=== PATIENT | female | born 1980 | race Caucasian/White ===

== ENCOUNTER → 2019-08-19 20:49 | Outpatient (CLI) | payer BC, SELFPAY ==
[2019-08-19 19:59] VITALS: BMI 22.6
[2019-08-19 22:42] LABS: Chlamydia Trachomatis by PCR Negative (Negative); Neisserai gonorrhoeae by PCR Negative (Negative); Probe Check PASS; Sample Adequacy Control PASS; Specimen Processing Control PASS
== END ==
PROVIDERS: PCP Nurse Practitioner; Referring Provider Nurse Practitioner; Visit Provider Nurse Practitioner
DX: N89.8 Other specified noninflammatory disorders of vagina (principal)
CPT/HCPCS: 87491; 87591

== ENCOUNTER → 2023-10-30 | Outpatient (CLI) | payer OTHER, SELFPAY ==
[2023-10-30 23:01] LABS: Absolute Neutrophil Count 3.1 X10^3/uL (2.0-7.7); Basophil# 0.04 X10^3/uL; Basophil% 0.7 % (0-1); Eosinophil# 0.03 X10^3/uL; Eosinophils% 0.5 % (0-5); Hemoglobin 12.8 g/dL (12.0-15.0); Lymphocyte % 37.8 % (19-41); Mean Corp Hgb Conc 32.8 g/dL (32-36); Mean Corpuscular Volume 94.4 fL (81-99); Mean Platelet Vol. 10.7 fl (6.2-12.0); Monocyte# 0.57 X10^3/uL; Monocyte% 9.4 % (0-10); NRBC Flagged by Analyzer 0 % (0-5); Neutrophil # 3.13 X10^3/uL (2.7-7.7); Neutrophil % 51.3 % (47-70); Platelet Count 249 K/mm3 (150-450); RBC Distribution Width CV 13.2 % (11.6-14.6); RBC Distribution Width SD 45.4 fl (35.1-43.9); Red Blood Count 4.13 M/mm3 (4.2-5.4); White Blood Count 6.1 K/mm3 (4.4-11.0)
[2023-10-30 23:18] LABS: ALB/GLOB Ratio 1.1 RATIO (0.9-2.4); AST(SGOT) 20 U/L (15-37); Alanine Aminotransfer ALT/SGPT 18 U/L (13-56); Albumin, Serum 4.1 g/dL (3.2-5.0); Alkaline Phosphatase 63 U/L (45-117); Anion Gap 5 (5-15); BUN 10 mg/dL (7-18); Calcium,Total 8.9 mg/dL (8.5-10.1); Chloride 110 mmol/L (98-107); Creatinine, Serum 0.77 mg/dL (0.55-1.02); EST Glomerular Filtration Rate 87 mL/min (>60); Est Glom Filt Rate - Afr Amer 105 mL/min (>60); Globulin 3.8 g/dL (2.2-4.2); Glucose 99 mg/dL (74-106); Lipase 56 U/L (13-75); Potassium 3.7 mmol/L (3.5-5.1); Protein, Total 7.9 g/dL (6.4-8.2); Sodium Level 141 mmol/L (136-145)
== END | disposition home or self-care (01) ==
PROVIDERS: PCP Nurse Practitioner; Referring Provider Nurse Practitioner; Visit Provider Nurse Practitioner
DX: R10.30 Lower abdominal pain, unspecified (principal); R11.0 Nausea
CPT/HCPCS: 80053; 83690; 85025

== ENCOUNTER → 2025-01-06 | Outpatient (CLI) | payer OTHER, SELFPAY ==
--- OUTSIDE RECORDS SUMMARY | 2025-01-06 22:03 | XMS RPT_ITS | CCD ---
Author Organization [facility] CliniSymt Care Team Providers Care Tank Maker Wood Name Role Phone QUYNH MCBRIDE Unavailable Unavai labEMERALD Hawkins Unavailable Unavailable NO PRIMARY CARE, Unavailable Unavailable XIMENA (PPG), SIMRANJOT Unavailable Unavaila ble XIMENA (PPG), SIMRANJOT Unavailable Unavaila ble NO REFERRING Unavailable Unavailable XIMENA, SIMRANJOT Unavailable Unavailable XIMENA, SIMRANJOT Unavailable Unavailable CASTILLO, RENA Primary Care Unavailable BELLSALMA, EMERALD Attending Unavailable CASTILLO, RENA Primary Care Unavailable Pending, Provider Primary Care Unavailable Ms. Kelly Reyna Referring Unavailable Ms. Kelly Reyna Attending Unavailable Castillo CARBON LAMP CLEANER.FLEET OPERATIONS MANAGER, Rena L Primary Care Provide r Panda CD TECHNICIAN, Rena Referring Unavailable Panda CD TECHNICIAN, Rena Attending Unavailable Castillo CD TECHNICIAN, Rena Primary Care Unavailable Castillo CARBON LAMP CLEANER.FLEET OPERATIONS MANAGER, Rena L Primary Care Provide r RUSTY OGDEN Attending Unavailable SELF Referring Unavailable CASTILLO, RENA L Primary Care Unavailable Medications Current Medications Medication Drug Class(es) Dates Sig (Normalized) Sig (Original) ALPRAZolam 0.5 mg oral tablet (1 source) Benzodiazepine Start: 07-11-2024 ALPRAZolam (XANAX) 0.5 mg tablet Take 0.5 mg by mouth. 07/11/2024 Active cetirizine hydrochloride 10 mg oral capsule (2 sources) Histamine-1 Receptor Antagonist Cetirizine (ZYRTEC) 10 mg cap Take by mouth. Active Comment on above: Take by mouth. doxycycline monohydrate 100 mg oral capsule (2 sources) Tetracycline-class Drug Start: 04-09-2023 take 1 capsule by mouth once daily doxycycline monohydrate (MONODOX) 100 mg capsule take 1 capsule by mouth once daily. 30 capsule 1 04/09/2023 Active Start: 02-21-2023 take 1 capsule by [facility] once daily doxycycline monohydrate (MONODOX) 100 mg capsule Take 1 capsule by mouth once daily. 30 capsule 1 02/21/2023 Active Comment on above: Take 1 capsule by [facility] once daily. erythromycin 0.005 mg/mg ophthalmic ointment (1 source) Macrolide, Macrolide Antimicrobial Start: 07-14-2024 erythromycin (ROMYCIN) 5 mg/gram (0.5 %) ophthalmic ointment Use 1 application in the right eye three times a day. 3.5 g 3 07/14/2024 Active MULTIVIT-MINERALS/FERROU S FUM (MULTI VITAMIN ORAL) (2 sources) MULTIVIT-MINERAL S/VLADIMIR US FUM (MULTI VITAMIN ORAL) Take by mouth once daily. Active MULTIVIT-MINERAL S/FERROUS FUM (MULTI VITAMIN ORAL) Take by mouth once daily. 0 Active Comment on above: Take by mouth once d aily. sertraline 50 mg oral tablet (2 sources) Serotonin Reuptake Inhibitor Start: 10-09-2017 take 1 tablet by mouth once daily sertraline (ZOLOFT) 50 mg tablet Take 1 tablet by mouth once daily. 30 tablet 2 10/09/2017 Active Comment on above: Take 1 tablet by [facility] once daily. Completed/Discontinued Medications Medication Drug Class(es) Dates Sig (Normalized) Sig (Original) benoxinate hydrochloride 4 mg/ml / fluorescein sodium 3 mg/ml ophthalmic solution (3 sources) Diagnostic Dye Start: 07-14-2024 End: 07-15-2024 fluorescein-benoxi julianne 0.3-0.4 % 1 drop (FLURESS) Start: 07-14-2024 End: 07-15-2024 1 drop, BOTH EYES, DIRECT ED, Starting on Sat07/14/24 at 1300, Until Sat07/15/24 at 0059, Administer for applanation tonometry. In the event of a Fluress shortage, administer 1 drop of [place]-Fluor into both eyes as directed for applanation tonometry., [facility]HT [facility]INIC MED ORDERS Start: 02-21-2023 End: 02-22-2023 fluorescein-benoxinate 0.3-0 .4 % 1 Drop (FLURESS) phenylephrine hydrochloride 25 mg/ml ophthalmic solution (2 sources) alpha-1 Adrenergic Agonist Start: 07-14-2024 End: 07-15-2024 PHENYLephrine 2.5 % 1 drop (AK-DILATE, SANDRA-SYNEPHRINE) Start: 07-14-2024 End: 07-15-2024 1 drop, BOTH EYES, DIRECT ED, Starting on Sat07/14/24 at 1300, Until Sat07/15/24 at 0059, Administer for dilation PROTECT FROM LIGHT, [facility]HT CLINIC MED ORDERS proparacaine hydrochloride 5 mg/ml ophthalmic solution (1 source) Local Anesthetic Start: 07-14-2024 End: 07-15-2024 proparacaine 0.5 % 1 drop (ALCAINE) tropicamide 10 mg/ml ophthalmic solution (2 sources) Anticholinergic Start: 07-14-2024 End: 07-15-2024 tropicamide 1 % 1 drop (MYDRIACYL) Start: 07-14-2024 End: 07-15-2024 1 drop, BOTH EYES, DIRECT ED, Starting on Sat07/14/24 at 1300, Until Sat07/15/24 at 0059, Administer for dilation, [facility]HT CLINIC MED ORDERS Problems Active Problems Problem Classification Problem Date Documented Da te Episodic/Chronic Abdominal pain (1 source) Lower abdominal pain, unspecified; Translations: [Lower abdominal pain, unspecified] Onset: 12-02-2023 Episodic Anxiety disorders (2 sources) Anxiety; Translations: [Anxiety disorder, unspecified] Onset: 10-15-2012 10-15-2012 Chronic Blindness and vision defects (3 sources) Disorder of refraction; Translations: [Unspecified disorder of refraction] Onset: 07-14-2024 02-21-2023 Episodic Inflammation; infection of eye (except that caused by tuberculosis or sexually transmitteddisease) (6 sources) Blepharitis; Translations: [Squamous blepharitis right eye, upper and lower eyelids] Onset: 07-14-2024 02-21-2023 Episodic Mood disorders (2 sources) Depressive disorder; Translations: [Depression] Onset: 10-15-2012 10-15-2012 Chronic Mood disorders (3 sources) Major depressive disorder, single episode, unspecified; Translations: [ANNALEE DEPRESS D/O SINGLE E] Onset: 11-14-2016 Other eye disorders (1 source) Chalazion of left upper eyelid; Translations: [Chalazion left upper eyelid] 02-21-2023 Episodic Other eye disorders (2 sources) Tear film insufficiency; Translations: [Dry eye syndrome of bilateral lacrimal glands] 02-21-2023 Episodic Other eye disorders (1 source) Dry eye syndrome of bilateral lacrimal glands; Translations: [Dry eye syndrome of both eyes] Onset: 07-14-2024 Episodic Other female genital disorders (2 sources) Postcoital bleeding; Translations: [Postcoital and contact bleeding] Onset: 12-27-2015 12-27-2015 Chronic Past or Other Problems Problem Classification Problem Date Documented Da te Episodic/Chronic Other and delivery including normal (1 source) Term ; Translations: [Encounter for supervision of normal , unspecified, unspecified trimester] Onset: 03-11-2016 Resolved: 03-12-2016 03-12-2016 Episodic Results Test Name Value Interpretation Reference Range Facility CBC W/Diff, Automatedon 08-0 Absolute Lymph 2.30 X10 3/uL Normal 0.83-4.51 [facility] Comment on above: Performed By: #### L 500.4050, L100.0100, L501.2450 #### [facility] [address] [place], [address] Absolute Neut 3.1 X10 3/uL Normal 2.0-7.7 [facility] Comment on above: Performed By: #### L 500.4050, L100.0100, L501.2450 #### [facility] [address] [place], [address] Basophils/100 WBC (Bld) 0.7 % Normal 0-1 [facility] Comment on above: Performed By: #### L 500.4050, L100.0100, L501.2450 #### [facility] [address] [place], [address] Eosinophils/100 WBC (Bld) 0.5 % Normal 0-5 [facility] Comment on above: Performed By: #### L 500.4050, L100.0100, L501.2450 #### [facility] [address] [place], [address] Erythrocyte distribution width (RBC) [Ratio] 13.2 % Normal 11.6-14.6 [facility] Comment on above: Performed By: #### L 500.4050, L100.0100, L501.2450 #### [facility] [address] [place], [address] Hematocrit (Bld) [Volume fraction] 39.0 % Normal 37-47 [facility] Comment on above: Performed By: #### L 500.4050, L100.0100, L501.2450 #### [facility] [address] [place], [address] Hemoglobin (Bld) [Mass/Vol] 12.8 g/dL Normal 12.0-15.0 [facility] Comment on above: Performed By: #### L 500.4050, L100.0100, L501.2450 #### [facility] [address] [place], [address] IG% 0.300 Normal 0.0-0.9 [facility] Comment on above: Result Comment: IG% - Immature Granulocytes (promyelocytes, myelocytes and metamyelocytes) > 1% indicates that a LEFT SHIFT is Present. Performed By: #### L 500.4050, L100.0100, L501.2450 #### [facility] [address] [place], [address] Lymphocytes/100 WBC (Bld) 37.8 % Normal 19-41 [facility] Comment on above: Performed By: #### L 500.4050, L100.0100, L501.2450 #### [facility] [address] [place], [address] MCH (RBC) [Entitic mass] 31.0 pg Normal 27.0-32.0 [facility] Comment on above: Performed By: #### L 500.4050, L100.0100, L501.2450 #### [facility] [address] [place], [address] MCHC (RBC) [Mass/Vol] 32.8 g/dL Normal 32-36 [facility] Comment on above: Performed By: #### L 500.4050, L100.0100, L501.2450 #### [facility] [address] [place], [address] MCV (RBC) [Entitic vol] 94.4 fL Normal 81-99 [facility] Comment on above: Performed By: #### L 500.4050, L100.0100, L501.2450 #### [facility] [address] [place], [address] Monocytes/100 WBC (Bld) 9.4 % Normal 0-10 [facility] Comment on above: Performed By: #### L 500.4050, L100.0100, L501.2450 #### [facility] [address] [place], [address] Neutrophils/100 WBC (Bld) 51.3 % Normal 47-70 [facility] Comment on above: Performed By: #### L 500.4050, L100.0100, L501.2450 #### [facility] [address] [place], [address] Nucleated RBC (Bld) [#/Vol] 0 10*3/uL Normal 0-5 [facility] Comment on above: Performed By: #### L 500.4050, L100.0100, L501.2450 #### [facility] [address] [place], [address] Platelet mean volume (Bld) [Entitic vol] 10.7 fL Normal 6.2-12.0 [facility] Comment on above: Performed By: #### L 500.4050, L100.0100, L501.2450 #### [facility] [address] [place], [address] Platelets (Bld) [#/Vol] 249 10*3/uL Normal 150-450 [facility] Comment on above: Performed By: #### L 500.4050, L100.0100, L501.2450 #### [facility] [address] [place], [address] RBC (Bld) [#/Vol] 4.13 10*6/uL Low 4.2-5.4 [facility] Comment on above: Performed By: #### L 500.4050, L100.0100, L501.2450 #### [facility] [address] [place], [address] RDW SD 45.4 fl High 35.1-43.9 [facility] Comment on above: Performed By: #### L 500.4050, L100.0100, L501.2450 #### [facility] [address] [place], [address] WBC (Bld) [#/Vol] 6.1 10*3/uL Normal 4.4-11.0 [facility] Comment on above: Performed By: #### L 500.4050, L100.0100, L501.2450 #### [facility] [address] [place], [address] Comprehensive Metabolic Prof [facility] 10-30-2023 Albumin [Mass/Vol] 4.1 g/dL Normal 3.2-5.0 [facility] Comment on above: Performed By: #### L 500.4050, L100.0100, L501.2450 #### [facility] [address] [place], [address] Albumin/Globulin [Mass ratio] 1.1 {ratio} Normal 0.9-2.4 [facility] Comment on above: Performed By: #### L 500.4050, L100.0100, L501.2450 #### [facility] [address] [place], [address] ALK P 63 U/L Normal 45-117 [facility] Comment on above: Performed By: #### L 500.4050, L100.0100, L501.2450 #### [facility] [address] [place], [address] ALT [Catalytic activity/Vol] 18 U/L Normal 13-56 [facility] Comment on above: Performed By: #### L 500.4050, L100.0100, L501.2450 #### [facility] [address] [place], [address] AST [Catalytic activity/Vol] 20 U/L Normal 15-37 [facility] Comment on above: Performed By: #### L 500.4050, L100.0100, L501.2450 #### [facility] [address] [place], [address] Bilirubin [Mass/Vol] 0.30 mg/dL Normal 0.20-1.00 [facility] Comment on above: Result Comment: For patients on eltrombopag therapy, use of Dimension [place] TBIL is not recommended. Performed By: #### L 500.4050, L100.0100, L501.2450 #### [facility] [address] [place], [address] BUN/CRE 13.0 RATIO Normal 10-20 [facility] Comment on above: Performed By: #### L 500.4050, L100.0100, L501.2450 #### [facility] [address] [place], [address] CA,Total 8.9 mg/dL Normal 8.5-10.1 [facility] Comment on above: Performed By: #### L 500.4050, L100.0100, L501.2450 #### [facility] [address] [place], [address] Chloride [Moles/Vol] 110 mmol/L High 98-107 [facility] Comment on above: Performed By: #### L 500.4050, L100.0100, L501.2450 #### [facility] [address] [place], [address] CO2 [Moles/Vol] 26.0 mmol/L Normal 21.0-32.0 [facility] Comment on above: Performed By: #### L 500.4050, L100.0100, L501.2450 #### [facility] [address] [place], [address] Creatinine [Mass/Vol] 0.77 mg/dL Normal 0.55-1.02 [facility] Comment on above: Result Comment: The validity of the calculated GFR GFRAA in patients over 70 years has not been determined. Clinical correlation is essential. Performed By: #### L 500.4050, L100.0100, L501.2450 #### [facility] [address] [place], [address] EST GFR - AA 105 mL/min Normal >60 [facility] Comment on above: Result Comment: Afri can Tanzanian GFR Calc Performed By: #### L 500.4050, L100.0100, L501.2450 #### [facility] [address] [place], [address] GAP 5 Normal 5-15 [facility] Comment on above: Performed By: #### L 500.4050, L100.0100, L501.2450 #### [facility] [address] [place], [address] GFR/1.73 sq M.predicted among non-blacks MDRD (S/P/Bld) [Vol rate/Area] 87 mL/min/{1.73_m2} Normal >60 [facility] Comment on above: Result Comment: Non- GFR Calc Performed By: #### L 500.4050, L100.0100, L501.2450 #### [facility] [address] [place], [address] Globulin (S) [Mass/Vol] 3.8 g/dL Normal 2.2-4.2 [facility] Comment on above: Performed By: #### L 500.4050, L100.0100, L501.2450 #### [facility] [address] [place], [address] Glucose [Mass/Vol] 99 mg/dL Normal 74-106 [facility] Comment on above: Performed By: #### L 500.4050, L100.0100, L501.2450 #### [facility] [address] [place], [address] Potassium [Moles/Vol] 3.7 mmol/L Normal 3.5-5.1 [facility] Comment on above: Performed By: #### L 500.4050, L100.0100, L501.2450 #### [facility] [address] [place], [address] Sodium [Moles/Vol] 141 mmol/L Normal 136-145 [facility] Comment on above: Performed By: #### L 500.4050, L100.0100, L501.2450 #### [facility] [address] [place], [address] T PROT 7.9 g/dL Normal 6.4-8.2 [facility] Comment on above: Performed By: #### L 500.4050, L100.0100, L501.2450 #### [facility] [address] [place], [address] Urea nitrogen [Mass/Vol] 10 mg/dL Normal 7-18 [facility] Comment on above: Performed By: #### L 500.4050, L100.0100, L501.2450 #### [facility] [address] [place], [address] Lipaseon 10-30-2023 Lipase [Catalytic activity/Vol] 56 U/L Normal 13-75 [facility] Comment on above: Result Comment: Zackary hernandez note: LIPASE revised reference range effective 22. New Lipase methodology. Expected to produce lower values than the previous assay method. NEW Reference Range: 13 - 75 U/L Performed By: #### L 500.4050, L100.0100, L501.2450 #### [facility] [address] [place], [place], [address] Office Visit (Urgent Care)on 03-12-2022 Follow-up visit Diagnoses/Problems Assessed Acute streptococcal pharyngitis (034.0) (J02.0) Orders Acute streptococcal pharyngitis Start: Amoxicillin 500 MG Oral Tablet; TAKE 1 TABLET EVERY 12 HOURS DAILY Rx By: Kelly Reyna; Dispense: 10 Days ; #:20 Tablet; Refill: 0;For: Acute streptococcal pharyngitis; GAIL = N; Sent To: [facility] SocHx: Former smoker Tobacco Use Screening; Status:Complete; Done: 12Mar2022 Perform:Not Applicable;Ordered; For:SocHx: Former smoker; Ordered By:Paty Park; Sore throat IO Rapid Strep; Status:Complete; Done: [id number] 01:37PM Performed:In Office; Due:10Jun2022;Ordered; For:Sore throat; Ordered By:Kelly Reyna; Patient Discussion/Summary Rapid in office strep test: Positive. Antibiotics sent to the pharmacy. Administer as directed. Do not stop early even if symptoms improve. Push fluids to stay well-hydrated May have lwtc-dxd-yaavwiv Tylenol and/or ibuprofen as needed for pain/fever Change toothbrush 24 hours after being on antibiotic Follow-up with surveyor helper rod Go directly to the emergency room for worsening symptoms such as trouble breathing/swallowing or any facial/neck swelling. Chief Complaint Chief Complaints Sore Throat History of Present Illness 41-year-old female presents to the urgent care with chief complaint of sore throat that started 5 days ago. States that throat pain has been constant and worsening. Has increased pain with swallowing, rating it 7 out of 10. Also endorses sweats, nausea, nasal congestion and runny nose. Has been alternating Advil, Tylenol and drinking hot tea with minimal relief in symptoms. Denies fever, body aches, chills, cough, vomiting or diarrhea, headaches, chest pain, trouble breathing or swallowing. Review of Systems All other systems have been reviewed and are negative for complaint. Active Problems Problems Sore throat (462) (J02.9) Social History Problems Former smoker (V15.82) (Z87.891) Allergies Medication No Known Drug Allergies Recorded By: Paty Park; 03/12/2022 1:24:24 PM Current Meds Medication NameInstruction No Reported Medications Vitals Vital Signs Recorded: [id number] 01:30PM Zmehhvbixie22.2 F Heart Rate73 Safhxpmbtrp19 Ptvhqdft059 Vqmosfmcv26 Height5 ft 6 in Vkeacf711 lb BMI Najlcjpxvb95.4 kg/m2 BSA Calculated1.74 Tobacco Useb) No PHQ-2 #1. Over the last 2 weeks have you felt down, depressed or hopeless? (If yes, answer PHQ-9 below)No PHQ-2 #2. Over the last 2 weeks have you felt little interest or pleasure in doing things? (If yes, answer PHQ-9 below)No Falls Screening (Age 18+)a) No falls within the last year O2 Ysfmupblma52 Pain Scale7 Physical Exam GENERAL: Well-appearing, nontoxic, NAD. VS and triage notes reviewed. Sitting comfortably in exam room. SKIN: Visualized skin is warm and dry. HEENT Head: Atraumatic Eyes: Sclera and conjunctivae normal; no redness or drainage. PERRL. EOMI Ears: Hearing grossly intact. Bilateral EAC patent, TMs rose portillo, non bulging. Nose: Nares grossly patent without discharge Face: symmetric Oropharynx: MMM. Generalized tonsillar erythema with exudate noted. No petechiae or gross swelling noted. Uvula midline. Neck: Supple with small, soft, mobile anterior cervical lymphadenopathy. Trachea midline. CHEST: Normal respiratory effort. Speaks in complete sentences. Equal chest rise. No retractions or tripoding. Lungs clear to auscultation throughout posterior lung serrano. No wheezes, crackles, or rhonchi. HEART: Regular rate. S1 AND S2 noted. No murmurs, rubs, clicks, gallops auscultated. PSYCH: Normal mood and affect. NEURO: Alert AND oriented. Moves all extremities. Speech is clear. Answers questions appropriately. Gait normal. Results/Data IO Rapid [id number] 01:37PMKelly Reyna Test NameResultFlagReference IO Rapid StrepPositiveA Signatures Electronically signed by : HAI Cooper; Mar 12 2022 2:11PM EST (Author) [facility] Phone Msgon 06-23-2021 Phone Msg - From: Maribeth Purcell To: Gary KUMAR, Addie; Sent: 06/23/2021 14:11:15 EDT Subject: .CHEMICAL LIBRARIAN VAGINAL INFECTION (BV/YEAST) pt had sinus infection and was taking omicef and now has a yeast infection. Pt sts diflucan never works and usually prescribes something else that has an applicator? Asked her if it was terconazole topical vaginal cream which is in her med list and she thought that was it. Question Response Last Annual/CPE/Visit 04/15/2020 Next Annual/CPE/Visit 12/01/[address] Garner Contact May we contact you via patient portal? *If not seen in the last 12 months, STOP and make a problem appointment (first available)* Are you or nursing? no Is there vaginal discharge? (thick, watery, chunky, etc?) please describe starting to have white Is there vaginal odor? no Is there vaginal burning? no If yes, is burning with urination only? Does it burn even when not urinating? External burning? no Is there vaginal itching? (internal/external?) yes How long have you had these symptoms? started 06/18 Have you tried OTC meds? (Monistat, vagisil?) no they usually dont work Have you been on a recent antibiotic? yes omnifec Any history of BV, yeast, or lichen sclerosus yeast Patient Preferred Pharmacy? (please update on file) in chart is correct pharmacy Allergies? *Send message to SHERITA* On hold pending signature Order:terconazole topical (terconazole 0.8% vaginal cream) 1 maurizio Vaginal QHS Qty: 20 g Duration: 3 days Refills: 0 Substitutions Allowed Route To Pharmacy - [id number] Last time pt was seen 04/15/20 and a annual coming up in Nov and terconazole cream was call in last time she had a bv infection. I will proposed the terconazole cream but let me know if you think differently and that she needs to come in for an appt. From: Hillary Soto MA To: ANDREI FOX; Sent: 06/23/2021 14:22:15 EDT Subject: FW: .CHEMICAL LIBRARIAN VAGINAL INFECTION (BV/YEAST) From: ANDREI FOX Sent: 06/23/2021 16:46:37 EDT Subject: RE:FW: .CHEMICAL LIBRARIAN VAGINAL INFECTION (BV/YEAST) Approved Order:terconazole topical (terconazole 0.8% vaginal cream) 1 maurizio Vaginal QHS Qty: 20 g Duration: 3 days Refills: 0 Substitutions Allowed Route To Pharmacy - [id number] Signed by ANDREI FOX 06/23/2021 16:46:00 EDT terazole for yeast Normal [facility] Panelon 11-14-2016 Anion gap 11 mmol/L Normal 8-20 [facility] Comment on above: Performed By: #### L P8 ####[address] [address] BUN (urea nitrogen) 14 mg/dL Normal 7- [facility] Comment on above: Performed By: #### L P8 ####[address] [address] BUN/Creatinine Ratio 23 mg/mg High 10-20 [facility] Comment on above: Performed By: #### L P8 ####[facility] [place], [place] [address] Calcium 9.0 mg/dL Normal 8.5-10.1 [facility] Comment on above: Performed By: #### L P8 ####[facility] [place] [address] Chloride 102 mmol/L Normal 98-107 [facility] Comment on above: Performed By: #### L P8 ####[facility] [place] [address] CO2 27 mmol/L Normal 21-32 [facility] Comment on above: Performed By: #### L P8 ####[place] [address] Creatinine 0.62 mg/dL Normal 0.51-0.95 [facility] Comment on above: Performed By: #### L P8 ####[place] [address] Glucose mass conc 83 mg/dL Normal 70-99 [facility] Comment on above: Performed By: #### L P8 ####[place] [address] Potassium molar conc 3.7 mmol/L Normal 3.5-5.1 [facility] Comment on above: Performed By: #### L P8 ####[place] [address] Sodium 136 mmol/L Normal 136-145 [facility] Comment on above: Performed By: #### L P8 ####[place] [address] Hemogramon 11-14-2016 Erythrocyte distribution width Auto Ratio (RBC) 13.3 % Normal 11.5-15.9 [facility] Comment on above: Performed By: #### L CBC ####[place] [address] Erythrocytes (RBC) 3.73 mil/cmm Low 4.20-5.40 [facility] Comment on above: Performed By: #### L CBC ####[place] [address] Hematocrit (HCT) 35.8 % Low 37.0-47.0 [facility] Comment on above: Performed By: #### L CBC ####[place] [address] Hemoglobin mass conc (Bld) 11.9 g/dL Low 12.0-16.0 [facility] Comment on above: Performed By: #### L CBC ####[place] [address] MCH 31.9 pg High 27.0-31.0 [facility] Comment on above: Performed By: #### L CBC ####[place] [address] MCHC mass conc (RBC) 33.2 % Normal 32.0-36.0 [facility] Comment on above: Performed By: #### L CBC ####[place] [address] MCV 96.0 fL Normal 81.0-99.0 [facility] Comment on above: Performed By: #### L CBC ####[place] [address] Platelet mean volume (PMV) 10.2 fL Normal 7.1-10.5 [facility] Comment on above: Performed By: #### L CBC ####[place] [address] Platelets 204 thou/cmm Normal 150-400 [facility] Comment on above: Performed By: #### L CBC ####[place] [address] WBC (Leukocytes) 5.2 thou/cmm Normal 4.8-10.8 [facility] Comment on above: Performed By: #### L CBC ####[place] [address] Hepatic Panelon 11-14-2016 Albumin 4.0 g/dL Normal 3.4-5.0 [facility] Comment on above: Performed By: #### L HEPA ####[place] [address] Albumin/Globulin Ratio 1.2 {ratio} Normal 0.9-2.4 [facility] Comment on above: Performed By: #### L HEPA ####[facility] [place], [place] [address] Alkaline phosphatase (ALP) 75 U/L Normal 46-116 [facility] Comment on above: Performed By: #### L HEPA ####[facility] [place], [place] [address] ALT-SGPT Blood 18 U/L Normal 12-78 [facility] Comment on above: Performed By: #### L HEPA ####[address] [address] AST-SGOT Blood 20 U/L Normal 15-37 [facility] Comment on above: Performed By: #### L HEPA ####[address] [address] Bilirubin (direct) 0.11 mg/dL Normal 0.00-0.20 [facility] Comment on above: Performed By: #### L HEPA ####[address] [address] Bilirubin (indirect) 0.3 mg/dL Normal 0.0-0.7 [facility] Comment on above: Performed By: #### L HEPA ####[address] [address] Bilirubin Ql (U) 0.4 mg/dL Normal 0.2-1.0 [facility] Comment on above: Performed By: #### L HEPA ####[address] [address] Protein 7.4 g/dL Normal 6.4-8.2 [facility] Comment on above: Performed By: #### L HEPA ####[address] [address] MDRD eGFRon 11-14-2016 eGFR (non-black) mL/min/{1.73_m2} Normal >60mL/m in/1.7 3m2 [facility] Comment on above: Result Comment: If t he patient is , multiply the result by 1.210. Performed By: #### L GFR ####[address] [address] TSH reflex ([place])on 11-15-19 17 Thyroid stimulating hormone (TSH) 0.73 uIU/mL Normal 0.34-4.82 [facility] Comment on above: Result Comment: Free T4 reflexed if TSH is less than or greater than the reference range. Performed By: #### L TSHR ####[facility] [place], [place] [address] Encounters Encounter Date Encounter Type Care Provider Facility Start: 07-14-2024 End: 07-14-2024 Patient encounter procedure Rusty Ogden MD Work Phone: [facility] [place] Comment on above: Hordeolum externum o f right upper eyelid (Primary Dx); Squamous blepharitis of upper and lower eyelids of both eyes; Dry eye syndrome of both eyes; Refraction error Start: 07-14-2024 End: 07-14-2024 ambulatory RUSTY OGDEN Facility:[facility] Start: 10-30-2023 End: 10-30-2023 ambulatory Rena Castillo NP Facility:[facility] Start: 02-21-2023 End: 02-21-2023 Patient encounter procedure Rusty Ogden MD Work Phone: [facility] Comment on above: Chalazion of left up per eyelid (Primary Dx); Squamous blepharitis of upper and lower eyelids of both eyes; Dry eye syndrome of both eyes; Refraction error Start: 03-12-2022 ambulatory Provider Pending Facili ty:[id number] Start: 01-01-2022 End: 01-01-2022 ambulatory EMERALD GARNER Facility:[facility] Start: 06-23-2021 ambulatory RENA CASTILLO Facilit y:[facility] Start: 12-19-2016 Ambulatory QUYNH CASTRO [facility] Start: 11-14-2016 End: 11-15-2016 Ambulatory RHIANNA BUENO (PPG) Facility:[facility] Plan of Treatment Date Care Activity Detail Author Start: 07-16-2025 End: 07-16-2025 Patient encounter procedure 07/16/2025 9:00 AM EDT Office Visit [facility] [place] [facility] [place] [address] Rusty Ogden MD [address] [place] [address] Return in about 1 year (around 07/14/2025) for Complete eye exam. [facility] Comment on above: Return in about 1 ye ar (around 07/14/2025) for Complete eye exam. Start: 11-24-2023 Covid-19 Vaccine () Covid-19 Vaccine () [facility] Start: 11-24-2023 Influenza vaccination Influenza Vacc ine (#1) [facility] Start: 11-23-2022 Influenza vaccination Influenza Vacc ine (#1) [facility] Start: 2021 Mammography Mammogram Screening [facility] Start: 2021 Screening for malign ant neoplasm of breast Mammogram Screening [facility] Start: 07-16-2017 HPV Testing HPV Testing [facility] Start: 07-16-2017 Pap Testing Pap Testing [facility] Start: 07-17-2015 Screening for malign ant neoplasm of cervix Cervical Cancer Screening [facility] Start: 2000 Hepatitis B Vaccine (1 of 3 - 19+ 3-dose series) Hepatitis B Vaccine (1 of 3 - 19+ 3-dose series) [facility] Start: 2000 Urine microalbumin profile DTa P,Tdap,Td Vaccine (1 - Tdap) [facility] Start: 1999 Hepatitis C Screening Hepatitis C [facility] Start: 1999 Hepatitis C screening Hepatitis C [facility] Start: 1981 Covid-19 Vaccine (#1) Covid-19 Vacci ne (#1) [facility] Start: 1981 Hepatitis B Vaccine (1 of 3 - 3-dose series) Hepatitis B Vaccine (1 of 3 - 3-dose series) [facility] Immunizations Immunization Date Immunization Notes Care Provider Fa cility 01-21-2017 influenza virus vacc ine, unspecified formulation Rusty Ogden MD Work Phone: [facility] Payers Date Payer Category Payer Self-pay 2022 [place] [employer] [employer] [id number] 2022 [place] [employer] [place] [employer] [id number] 2022-Present [phone] [address] [place] [address] PPO [id number] 2022 Unknown [id number] 2008 Unknown [id number] 1981 Unknown [id number] 1981 Unknown [id number] 1981 Unknown [id number] Unknown [id number] Unknown [id number] Unknown [id number] Social History Date Type Detail Facility Start: 10-15-2012 [facility] End: 09-22-2009 History of tobacco use Current smoker [facility] End: 09-22-2009 History of tobacco use Cigarette Smoker [facility] Start: 02-21-2023 End: 07-14-2024 Alcohol intake Current drinker of alcohol (finding) [facility] Start: 10-22-2018 End: 07-04-2023 History of Social function [facility] Start: 10-22-2018 End: 07-04-2023 Tobacco use panel [facility] National Score (1-10 0), lower number is lower risk 79 [facility] Start: 11-12-2016 Alcohol Comment occassionally [facility] Start: 1980 Sex Assigned At Not on file C [facility] Functional Status Date Assessment Result Facility 03-13-2016 Are you deaf, or do you have serious difficulty hearing No 03/13/2016 9:12 AM Dania Chavez)(Hist), RN No [facility] 03-13-2016 Are you blind, or do you have serious difficulty seeing, even when wearing glasses No 03/13/2016 9:12 AM [facility]ia Chavez)(Hist), RN No [facility] 03-13-2016 Do you have serious difficulty walking or climbing stairs No 03/13/2016 9:12 AM Dania Chavez)(Hist), RN No [facility] 03-13-2016 Do you have difficul ty dressing or bathing No 03/13/2016 9:12 AM Dania Chavez)(Hist), RN No [facility] 03-13-2016 Because of a physica l, mental, or emotional condition, do you have difficulty doing errands alone such as visiting a physician's office or shopping No 03/13/2016 9:12 AM Dania Chavez)(Hist), RN No [facility] Mental Status Date Assessment Result Facility 03-13-2016 Because of a physica l, mental, or emotional condition, do you have serious difficulty concentrating, remembering, or making decisions No 03/13/2016 9:12 AM [facility]ia Chavez)(Hist), RN No [facility] Instructions 07-14-2024 Patient Instructions Note Date & Type Note Facility 07-14-2024 Instructions Rusty Ogden MD - 07/14/2024 1:35 PM EDT Images from the original note were not included. documented in this encounter [facility] Progress note 07-14-2024 Note Date & Type Note Facility 07-14-2024 Note HNO ID: [id number] Author: RUSTY OGDEN MD Service: ? Author Type: Physician Type: Progress Notes Filed: 07/14/2024 13:38 Note Text: Primary care physician visit not available for review. (H00.011) Hordeolum externum of right upper eyelid (primary encounter diagnosis) (H01.02A, H01.02B) Squamous blepharitis of upper and lower eyelids of both eyes Comment: Discussed findings on exam. Plan: Start warm water compresses Right upper lid x 4-6 x per day. Resume lid hygiene both eyes twice a day. Start Erythromycin nathalie Right upper lid three times a day. Rx sent with refills. Future option for minor surgery excision reviewed. Pamphlet printed for review. H/o: Patient finished Doxy orally. (H04.123) Dry eye syndrome of both eyes Comment: Discussed findings on exam. Plan: Recommend Artificial tears both eyes as needed. (H52.7) Refraction error Comment: Discussed change in Manifest refraction. Plan: Manifest refraction updated and dispensed as optional. Bifocal adaption time reviewed. Follow up for yearly complete eye exam I have confirmed and edited as necessary the relevant ophthalmic history, ROS, and the neuro exam findings as obtained by others. I have seen and examined this patient. I have discussed the case and the management of this patient's care with the Resident/Fellow, if applicable. I also have reviewed and agree with the assessment and plan as stated above and agree with all of its relevant components. Rusty Ogden MD July 14, 2024 1:22 PM [facility] History of Present illness Narrative 07-14-2024 Rusty Ogden MD - 07/14/2024 1:22 PM EDT Note Date & Type Note Facility 07-14-2024 History of Presen t illness Narrative Primary care physician visit not available for review. (H00.011) Hordeolum externum of right upper eyelid (primary encounter diagnosis) (H01.02A, H01.02B) Squamous blepharitis of upper and lower eyelids of both eyes Comment: Discussed findings on exam. Plan: Start warm water compresses Right upper lid x 4-6 x per day. Resume lid hygiene both eyes twice a day. Start Erythromycin nathalie Right upper lid three times a day. Rx sent with refills. Future option for minor surgery excision reviewed. Pamphlet printed for review. H/o: Patient finished Doxy orally. (H04.123) Dry eye syndrome of both eyes Comment: Discussed findings on exam. Plan: Recommend Artificial tears both eyes as needed. (H52.7) Refraction error Comment: Discussed change in Manifest refraction. Plan: Manifest refraction updated and dispensed as optional. Bifocal adaption time reviewed. Follow up for yearly complete eye exam I have confirmed and edited as necessary the relevant ophthalmic history, ROS, and the neuro exam findings as obtained by others. I have seen and examined this patient. I have discussed the case and the management of this patient's care with the Resident/Fellow, if applicable. I also have reviewed and agree with the assessment and plan as stated above and agree with all of its relevant components. Rusty Ogden MD July 14, 2024 1:22 PM documented in this encounter [facility] Instructions 02-21-2023 Patient Instructions Note Date & Type Note Facility 02-21-2023 Instructions Rusty Ogden MD - 02/21/2023 2:11 PM EST Images from the original note were not included. documented in this encounter [facility] History of Present illness Narrative 02-21-2023 Rusty Ogden MD - 02/21/2023 1:53 PM EST Note Date & Type Note Facility 02-21-2023 History of Presen t illness Narrative (H00.14) Chalazion of left upper eyelid (primary encounter diagnosis) Comment: Discussed findings on exam. Plan: Options discussed including observation vs minor surgery excision left upper lid chalazion. Pamphlet printed. (H01.02A, H01.02B) Squamous blepharitis of upper and lower eyelids of both eyes Comment: Discussed findings on exam. Plan: Start warm water compresses and lid hygiene both eyes twice a day. Start Doxycycline 100 mg orally once a day. Rx sent. Side effects discussed with patient. Patient to take with food. (H04.123) Dry eye syndrome of both eyes Comment: Discussed findings on exam. Plan: Recommend Artificial tears both eyes as needed. (H52.7) Refraction error Comment: Stable Plan: Monitor Follow up for minor surgery left upper lid end of the day. I have confirmed and edited as necessary the relevant ophthalmic history, ROS, and the neuro exam findings as obtained by others. I have seen and examined this patient. I have discussed the case and the management of this patient's care with the Resident/Fellow, if applicable. I also have reviewed and agree with the assessment and plan as stated above and agree with all of its relevant components. Rusty Ogden MD February 21, 2023 2:06 PM documented in this encounter [facility] History of Past illness Narrative 03-11-2016 Note Date & Type Note Facility 03-11-2016 History of Past i llness Narrative Problem Noted Date Diagnosed Date Resolved Date Term 03/11/2016 03/12/2016 documented as of this encounter (statuses as of 02/21/2023) [facility] Evaluation note Note Date & Type Note Facility Evaluation note Diagnosis Chalazion of left upper eyelid- Primary Chalazion Squamous blepharitis of upper and lower eyelids of both eyes Dry eye syndrome of both eyes Refraction error Unspecified disorder of refraction and accommodation documented in this encounter [facility] Evaluation note Note Date & Type Note Facility Evaluation note Diagnosis Hordeolum externum of right upper eyelid- Primary Hordeolum externum Squamous blepharitis of upper and lower eyelids of both eyes Dry eye syndrome of both eyes Refraction error Unspecified disorder of refraction and accommodation documented in this encounter [facility] Summary Purpose Family History No Family History Records FoundNo Family History Records FoundNo Family History Records FoundNo Family History Records FoundNo Family History Records FoundNo Family History Records FoundNo Family History Records FoundNo Family History Records FoundNo Family History Records Found Advance Directives No Advanced Directives Records FoundNo Advanced Directives Records FoundNo Advanced Directives Records FoundNo Advanced Directives Records FoundNo Advanced Directives Records FoundNo Advanced Directives Records FoundNo Advanced Directives Records FoundNo Advanced Directives Records FoundNo Advanced Directives Records Found Additional Source Comments INFORMATION SOURCE (unrecogn ized section and content) DATE CREATED AUTHOR 09/18/2017 [facility] DATE CREATED AUTHOR AUTHOR'S ORGANIZ ATION 09/18/2017 [facility] DATE CREATED AUTHOR AUTHOR'S ORGANIZ ATION 09/18/2017 [facility] DATE CREATED AUTHOR AUTHOR'S ORGANIZ ATION 06/26/2021 [facility] DATE CREATED AUTHOR AUTHOR'S ORGANIZ ATION 12/31/2021 [facility] DATE CREATED AUTHOR AUTHOR'S ORGANIZ ATION 03/16/2022 [employer] DATE CREATED AUTHOR AUTHOR'S ORGANIZ ATION 09/19/[address] [facility] DATE CREATED AUTHOR AUTHOR'S ORGANIZ ATION 12/03/2023 [facility] DATE CREATED AUTHOR AUTHOR'S ORGANIZ ATION 07/29/2024 [facility] Source Comments (unrecognize d section and content) In the event this informatio n is protected by the Federal Confidentiality of Alcohol and Drug Abuse Patient Records regulations: The Federal rules restrict any use of the information to criminally investigate or prosecute any alcohol or drug abuse patient.[facility] the event this information is protected by the Federal Confidentiality of Alcohol and Drug Abuse Patient Records regulations: The Federal rules restrict any use of the information to criminally investigate or prosecute any alcohol or drug abuse patient.[facility] Reason for Visit (unrecogniz ed section and content) Reason Comments Bump On Left Upper Lid Reason Comments Dry Eye(s) Both Eyes Chalazion Follow Up Care Teams (unrecognized sec tion and content) [employer] Relationship Specialty Start Date End Date Rena Castillo, [employer]ER.FLEET OPERATIONS MANAGER [address] [place], [place] [phone] PCP - General Family Medicine 02/21/23 [employer] Relationship Specialty Start Date End Date Rena Castillo, [employer] CLE[employer]ER.FLEET OPERATIONS MANAGER [address] [place], [place] [phone] PCP - General Family Medicine 02/21/23 FOR RECORDS PERTAINING TO PATIENTS WHO ARE OR HAVE BEEN ENROLLED IN A CHEMICAL DEPENDENCY/SUBSTANCEABUSE PROGRAM, SOME INFORMATION MAY BE OMITTED. This clinical summary was aggregated from multiple sources. Caution should be exercised in using it in the provision of clinical care. This summary normalizes information from multiple sources, and as a consequence, information in this document may materially change the coding, format and clinical context of patient data. In addition, data may be omitted in some cases. CLINICAL DECISIONS SHOULD BE BASED ON THE PRIMARY CLINICAL RECORDS. [facility] [employer] [facility]. provides no warranty or guarantee of the accuracy or completeness of information in this document.
== END | disposition home or self-care (01) ==
PROVIDERS: PCP Nurse Practitioner; Visit Provider Nurse Practitioner
DX: Z20.2 Contact with and (suspected) exposure to infections with a predominantly sexual mode of transmission (principal)
CPT/HCPCS: 87491; 87591